=== PATIENT | female | born 1945 | race African-American/Black ===

== ENCOUNTER → 2017-07-08 | Outpatient (CLI) | payer OTHER ==
[~2017-07-08] MED LIST: ALEVE220 M1 PO; ALLERGY RELIEF25 M2 PO; COLACE100 MG PO; ELIQUIS2.5 MG PO; GLUCOPHAGE1000 MG PO; GLUCOPHAGE500 MG PO; GLYBURIDE 1.21.25 M1 PO; MULTIVITAMINS PO; ONDANSETRON HCL4 M2 PO; PERCOCET PO; STOOL SOFTENER100 M1 PO; STOOL SOFTENER50 MG PO; SYNTHROID75 MCG PO; TUMS PO; ULTRA-LIGHT RO1 EACH MC; VITAMIN D1000 UNIT PO; VITAMIN D32000 UNIT PO; ZOCOR40 MG PO
== END ==
LOC: CAT 13:34
DX: M17.11 Unilateral primary osteoarthritis, right knee (principal); Z96.651 Presence of right artificial knee joint

== ENCOUNTER 2018-03-15 14:15 | Inpatient (IN) | payer OTHER ==
[2018-02-22 08:54] LABS: ALBUMIN 3.5 g/dL (3.4-5.0); CALCIUM 10.4 mg/dL (8.5-10.1); CREATININE 1.4 mg/dL (0.6-1.0); POTASSIUM 4.1 mmol/L (3.5-5.1)
[2018-02-22 08:59] LABS: ABSOLUTE NEUTROPHILS 3.9 thou/uL (1.4-8.2); BASOPHILS 0.6 % (0.0-2.0); EOSINOPHILS 1.7 % (0.0-3.0); HEMATOCRIT 35.8 % (37.0-47.0); HEMOGLOBIN 11.5 gm/dL (12.0-15.0); LYMPHOCYTES 22.9 % (24.0-44.0); MCH 25.4 pg (26.0-34.0); MCHC 32.2 g/dL (28.0-37.0); MCV 78.7 fL (80.0-100.0); MONOCYTES 6.8 % (1.0-8.0); PLATELET COUNT 280 thou/uL (150-400); RBC 4.55 mil/uL (4.20-5.00); RDW 16.4 % (10.5-14.5); WBC 5.8 thou/uL (4.0-11.0)
[2018-02-22 09:03] LABS: URINE BILIRUBIN NEGATIVE (Negative); URINE BLOOD NEGATIVE (Negative); URINE CLARITY CLEAR; URINE COLOR YELLOW; URINE GLUCOSE-RANDOM* NEGATIVE (Negative); URINE KETONES NEGATIVE (Negative); URINE NITRITE-REFLEX NEGATIVE (Negative); URINE PROTEIN (DIPSTICK) NEGATIVE (Negative); URINE SPECIFIC GRAVITY >= 1.030 (1.005-1.035); URINE UROBILINOGEN 0.2 E.U./dl (0.2-1.0)
[2018-02-22 09:05] LABS: URINE LEUKOCYTES-REFLEX 1+ (Negative)
[2018-02-22 09:16] LABS: CASTS None Seen /LPF (None Seen); CRYSTALS None Seen /LPF (None Seen); SQUAMOUS >10 Many /LPF (0-3); URINE WBC-REFLEX 0-5 Rare /HPF (0-5)
[2018-02-22 09:17] LABS: BACTERIA-REFLEX None Seen /HPF (None Seen); URINE RBC None Seen /HPF (0-2)
[~2018-03-15] VITALS: Ht 170.2 cm; Wt 102.1 kg
--- NOTE | ~2018-03-15 | EKG ---
[place] [address] [facility] [place] ([address]) [place] [address] ELECTROCARDIOGRAM REPORT Name: PARMJIT RUDD Room #: PRE IN ..#: [id number] Admission: Attend Phys: Chris Walsh MD Discharge: Date of : 43 Report #: [id number] THIS REPORT FOR: //name// [facility] Test Date: 2018-02-22 Test Time: 08:35:52 Pat Name: PARMJIT RUDD Department: Room: Gender: F Wardrobe Supervisor: wade : 1945 Requested By: Chris Walsh Order Number: [id number] MD: Mikey Acosta Measurements Intervals Spencer Rate: 65 P: 0 NM: 184 QRS: 25 QRSD: 92 T: -16 QT: 387 QTc: 403 Interpretive Statements Sinus rhythm Abnormal R-wave progression, early transition Borderline T abnormalities Compared to ECG 05/05/2016 08:32:08 T-wave abnormality now present Electronically Signed On 02-22-2018 16:33:54 CDT by Mikey Acosta [email or web address] <ELECTRONICALLY SIGNED> By: Mikey Acosta MD, [facility] 02/22/18 1633 4 4 Mikey Acosta MD, [facility] /EPI
--- NOTE | ~2018-03-15 | PATH ---
[facility] [address] [place] [address] PATHOLOGY RPT PROCEDURE Name: PARMJIT RUDD MAAME Room #: 410-P ADM IN M.R.#: [id number] Admission: 03/16/18 Date of : 43 Discharge: Report #: [id number] Path Case #: [id number] [facility] Accession Number: [id number] . 01 Material submitted: . RIGHT KNEE SYNOVIUM- FS . 01 Clinical history: . Right knee osteoarthritis . 02 Diagnosis: Fibrocartilaginous tissue and bone, "right knee synovium": - Fragment of bone and fibrocartilaginous tissue revealing focal chronic synovitis with remote hemorrhage. - Neutrophils are not seen. ([facility]:mgr; 03/17/18) QRQ/03/17/2018 . 02 Electronically signed: . Cameron Tejada MD, Pathologist NPI- [id number] . 01 Gross description: . Specimen received fresh labeled, "Parmjit Rudd", consists of a barraza piece of tissue measuring 3 x 2 x 0.5 cm. It is sectioned and a desk representative section is frozen and submitted in cassette labeled A1. ([facility]:brisa; 03/16/2018) . Additional sections are submitted in A2-A3. ([facility]; 03/16/2018) . . FROZEN SECTION DIAGNOSIS (Cameron Tejada M.D.) . FSA1. Soft tissue right knee revision: - No acute inflammatory cells seen. . These findings were discussed with Dr. Chris Walsh and a written report was placed in the patient's chart. ([facility]:brisa; 03/16/2018) . Frozen section performed at [facility], [address] [place] [address] , [place] [address]. [facility]/ . Pathologist provided ICD-10: [address] [address] PATHOLOGY RPT PROCEDURE Name: PARMJIT RUDD Room #: 410-P ADM IN M.R.#: [id number] Admission: 03/16/18 Date of : 43 Discharge: Report #: [id number] Path Case #: [id number] . 02 CPT . [id number], [id number] Performed at: 01 [facility] [place] [address], [place], [place] [id number] MD Joel Titus MD Phone: [phone] Performed at: [address] [id number] MD Sharmila Gonzalez MD Phone: [phone]
--- NOTE | ~2018-03-15 | O ---
[facility] [place] [address] OPERATIVE REPORT Name: BLAIREPARMJITJUAN JOSE ISABEL Room #: 220-P [facility] IN M.R.#: [id number] Admission: 03/16/18 Attend Phys: Chris Walsh MD Discharge: 03/20/18 Date of : 43 Report #: [id number] THIS REPORT FOR: //name// CC: Ellie Walsh DATE OF SERVICE: 03/16/2018 PREOPERATIVE DIAGNOSIS: Aseptic loosening, right total knee arthroplasty. POSTOPERATIVE DIAGNOSIS: Aseptic loosening, right total knee arthroplasty. PROCEDURE: Revision right total knee arthroplasty including the femoral and tibial components with retention of the patellar component. SURGEON: Chris Walsh MD. ALMOND SORTER: Vivienne Marr PA-C. INDICATIONS FOR ALMOND SORTER: Throughout the case, extensive retraction and manipulation of the knee was required. This was afforded to me by my seismic survey assistant. ANESTHESIA: LMA with an adductor canal block. IMPLANTS: [employer] size 6 Oxinium Legion revision posterior stabilized component with a 4 offset ground operations crew member and an 18 x 160 mm stem, a size 5 tibial tray with a 2 mm offset ground operations crew member and a size 16 x 160 stem, 13 mm highly constrained polyethylene. TOURNIQUET TIME: 98 minutes. ESTIMATED BLOOD LOSS: 50 mL. COMPLICATIONS: None. SPECIMENS: Intraoperative cultures as well as intraoperative frozen section were taken and shown to have 0 white cells per high power field. CONDITION UPON LEAVING THE OR: Stable. INDICATIONS FOR PROCEDURE: The patient is a 72-year-old female who is about a year-and-a half out from a right total knee arthroplasty. She has had continued pain in this knee and workup for infection has been negative. She had a recent bone scan shown to have increased uptake around her right knee arthroplasty components and it was felt that she had aseptic loosening. After discussion with her, she elected for revision right total knee arthroplasty. [address] [address] OPERATIVE REPORT Name: PARMJIT RUDD MAAME Room #: 220-P [facility] IN M.R.#: [id number] Admission: 03/16/18 Attend Phys: Chris Walsh MD Discharge: 03/20/18 Date of : 43 Report #: [id number] DESCRIPTION OF PROCEDURE: Risks, benefits, alternatives, complications were discussed in detail with the patient including but not limited to risk of anesthesia, risk of damage to nerves, arteries, blood vessels, risk for infection, bleeding, risk for continued knee pain and need for reoperation. Informed consent was obtained from the patient. The right knee was appropriately marked in the preoperative holding area. IV Ancef was given for preoperative antibiotics. She was brought to the operating room and placed in supine position on operating room table. Adductor canal block had been placed by Anesthesia. LMA anesthesia was induced without complication. Tourniquet was placed on the right thigh. Right lower extremity was prepped and draped in normal sterile fashion. Timeout was performed properly identifying the patient and procedure as well as the instrumentation and implants. All in the operating room were in agreement. Right lower extremity was exsanguinated, tourniquet was inflated. Tourniquet time was 98 minutes. The previous scar was used and this was opened with a 10 blade through the skin and dissection was taken down sharply to the fascia and deep flaps were developed medially and laterally. Fresh 10 blade was used to make a medial parapatellar arthrotomy and cultures of the synovial fluid were taken. Several areas of synovium were then excised and sent to pathology for intraoperative frozen section. This came back at 0 white cells per high power field. It was decided to proceed with total knee arthroplasty revision at this point. The patella was everted. Scar tissue was removed with Bovie cautery and the polyethylene was removed. Deep retractors were placed. The femoral component was then dissected off the femur with a combination of rigid and flexible osteotomes. The femoral component came off fairly easily and there was a significant bone resorption within the central area of the distal femur. The knee was hyperflexed, tibia subluxed and the tibial component was removed with combination of flexible and rigid osteotomes. Less bone loss was associated with the tibial side. After this, all remaining cement was removed with rongeur and the femoral and tibial canals were sequentially reamed up to size 16 on the tibia, at which point the reamer was stable. The tibial resection guide was pinned in place and a cleanup cut was made on the tibia. After this, tibia was sized, found to be a size 5 and this fit best with a 2 mm ground operations crew member. This was pinned and punched and a tibial trial with a 160 mm x 16 stem with a 2 mm offset ground operations crew member was placed. Attention was turned to the femur. This was reamed up to an 18, at which point a size 18 reamer was stable. Distal femoral cutting block was pinned in place and a cleanup distal femoral cut was made. Chamfer cuts were then made using the cutting block with a 4 mm offset ground operations crew member. After this, trial component was built on the back table and placed and box cut was made. This was then trialed with an 11 and then a size 12 as well as a size 13 polyethylene. The size 13 seemed to have the best fit. The patellar component was then inspected and found to be stable. Trial components were removed. Bony ends were thoroughly irrigated with normal saline. Final components were built on the back table and the final tibial and femoral components were cemented in place using standard cementation techniques. While the cement cured, a periarticular injection consisting of [facility] [address] [place] [address] OPERATIVE REPORT Name: SHANKAR RUDDJORIE [facility] Room #: 220-P DIS IN M.R.#: [id number] Admission: 03/16/18 Attend Phys: Chris Walsh MD Discharge: 03/20/18 Date of : 43 Report #: [id number] morphine, ropivacaine, epinephrine and Toradol was placed in the knee joint capsule. After the cement cured, tourniquet was deflated. Hemostasis was obtained with Bovie cautery. A gram of vancomycin was placed deep in the knee joint. Fascia was closed with 0 Vicryl, skin was closed with 2-0 Vicryl, skin nicole and SAMANTHA dressing was applied. The patient tolerated this procedure well and went to recovery room under care of Anesthesia postoperatively. <ELECTRONICALLY SIGNED> By: Chris Walsh MD 03/22/18 0903 [id number] 0850 Chris Walsh MD /nt
[2018-03-16 13:13] VITALS: BP 139/71
[2018-03-16 18:40] VITALS: BP 145/55
[2018-03-16 19:10] VITALS: BP 137/61
[2018-03-16 20:00] VITALS: BP 117/52
[2018-03-17] VITALS: BP 124/57
[2018-03-17 04:00] VITALS: BP 130/68
[2018-03-17 05:23] LABS: HEMATOCRIT 31.9 % (37.0-47.0); HEMOGLOBIN 10.4 gm/dL (12.0-15.0); MCH 25.8 pg (26.0-34.0); MCHC 32.7 g/dL (28.0-37.0); MCV 79.1 fL (80.0-100.0); RBC 4.03 mil/uL (4.20-5.00); RDW 15.7 % (10.5-14.5); WBC 10.6 thou/uL (4.0-11.0)
[2018-03-17 07:20] VITALS: BP 125/56
[2018-03-17 16:10] VITALS: BP 117/59
[2018-03-17 20:32] VITALS: BP 118/48
[2018-03-18 04:25] LABS: HEMATOCRIT 30.9 % (37.0-47.0); HEMOGLOBIN 9.8 gm/dL (12.0-15.0); MCH 25.4 pg (26.0-34.0); MCHC 31.7 g/dL (28.0-37.0); RBC 3.87 mil/uL (4.20-5.00); RDW 15.8 % (10.5-14.5); WBC 7.7 thou/uL (4.0-11.0)
[2018-03-18 04:52] VITALS: BP 114/56
[2018-03-18 07:43] VITALS: BP 131/53
[2018-03-18 13:54] VITALS: BP 131/53
[2018-03-18] MEDS ORDERED: XARELTO10 MG PO (14:50)
[2018-03-18] MEDS ORDERED: HYDROCODON-ACE1 EAC7 PO (14:51)
[2018-03-18] MEDS ORDERED: MS CONTIN15 MG PO (14:51)
[2018-03-18] MEDS ORDERED: NEURONTIN 300300 M1 PO (14:52)
[2018-03-18 16:14] VITALS: BP 129/47
[2018-03-18 20:00] VITALS: BP 140/71
[2018-03-19 04:00] VITALS: BP 119/51
[2018-03-19 04:46] LABS: HEMATOCRIT 28.4 % (37.0-47.0); HEMOGLOBIN 9.3 gm/dL (12.0-15.0); MCH 25.8 pg (26.0-34.0); MCHC 32.6 g/dL (28.0-37.0); RBC 3.59 mil/uL (4.20-5.00); RDW 15.7 % (10.5-14.5); WBC 7.5 thou/uL (4.0-11.0)
[2018-03-19 07:30] VITALS: BP 117/55
[2018-03-19 16:15] VITALS: BP 130/69
[2018-03-19 18:57] VITALS: BP 134/64
[2018-03-20 08:14] VITALS: BP 144/62
[2018-03-20 17:11] VITALS: BP 131/53
== END 2018-03-20 18:50 | disposition home health service (06) | DRG 468 ==
LOC: PRE 14:15 → TBA 03-16 11:32 → 4N 03-16 11:32 → PRE 03-16 13:05 → 4N 03-16 17:40 → SICU 03-19 18:38
PROVIDERS: Orthopaedic Surgery
PROC: 0SRC069 Replacement of Right Knee Joint with Oxidized Zirconium on Polyethylene Synthetic Substitute, Cemented, Open Approach (ICD-10-PCS; principal; 2018-03-16)
PROC: 0SPC0JZ Removal of Synthetic Substitute from Right Knee Joint, Open Approach (ICD-10-PCS; principal; 2018-03-16)
DX: T84.032A Mechanical loosening of internal right knee prosthetic joint, initial encounter (principal); Z96.652 Presence of left artificial knee joint; R21 Rash and other nonspecific skin eruption; M17.11 Unilateral primary osteoarthritis, right knee; Z88.6 Allergy status to analgesic agent; Z88.1 Allergy status to other antibiotic agents; Z88.8 Allergy status to other drugs, medicaments and biological substances
CPT/HCPCS: 10790; 15002; 50010; 50101; 50415; 50455; 50954; 51130; 51225; 51412; 51771; 53000; 53078; 54118; 56527; 56528; 57095; 57103; 62110; 62900; 70005

== ENCOUNTER → 2018-12-21 | Outpatient (CLI) | payer OTHER ==
[~2018-12-21] MED LIST changes: +HYDROCODON-ACE1 EAC7 PO; +MS CONTIN15 MG PO; +NEURONTIN 300300 M1 PO; +XARELTO10 MG PO
== END ==
LOC: ULTRA 09:45
DX: M25.561 Pain in right knee (principal)